=== PATIENT | female | born 1970 | race Caucasian/White ===

== ENCOUNTER 2025-06-02 18:30 | Emergency (ER) | payer OTHER, SELFPAY ==
--- NOTE | 2025-06-02 18:37 | ED_ITS ---
HPI - General Adult General Chief complaint: Extremity Problem,Nontraumatic Stated complaint: LT Arm Pain Time Seen by Provider: 06/02/25 18:42 Source: patient, RN notes reviewed and old records reviewed Mode of arrival: ambulatory Limitations: no limitations History of Present Illness HPI narrative: 55-year-old female presents to the [facility] with left shoulder pain. States that it started 4 days ago. States that she feels like she slept wrong. Denies any chest pain, shortness of breath. States the pain starts at the base of her neck and radiates down to her elbow. States that she can get comfortable her with certain positions. Does have full range of motion. Denies any injury. Reports a history of a pinched nerve in the same area. Onset (ago): day(s) (4) Related Data Home Medications ?Medication ?Instructions ?Recorded ?Confirmed ?Last Taken ?Type estradiol 0.01% (0.1 mg/gram) vaginal 06/02/25 Unknow n History vaginal cream losartan 100 mg tablet mg 06/02/25 Unknown History metoprolol succinate 25 mg mg PO 06/02/25 Unknown His tory tablet,extended release 24 hr topiramate 100 mg tablet mg 06/02/25 Unknown History Allergies Allergy/AdvReac Type Severity Reaction Status Date / Time hydrocodone AdvReac Intermediate Irritable Verified 06/02/25 18:47 Review of Systems Review of Systems: All systems reviewed & are unremarkable except as noted in HPI and below Constitutional: Constitutional: Reports no additional constitutional complaints ENT: Reports system reviewed and no additional complaints, except as documented Cardiovascular: Cardiovascular: Reports no additional cardiovascular complaints, Denies chest pain and Denies dyspnea Respiratory: Respiratory: Reports no additional respiratory complaints, Denies chest congestion, Denies cough and Denies dyspnea Musculoskeletal: Musculoskeletal: Reports as per HPI Integumentary/Breasts: Skin/Breast: Reports system reviewed and no additional complaints, except as docu PMFSH Comments At the time of my signature, I reviewed and agree with the nursing past medical, surgical, social, and family history. There is no relevant family history pertinent to the patient complaint. Exam Const: General: cooperative, healthy appearing, comfortable, no acute distress, well developed, alert and well nourished Nutritional Appearance: well nourished and obese Orientation/consciousness: patient oriented x3 Limitations: no limitations HENMT: Head: normal to inspection Eyes: General: appearance normal, both eyes and all related structures Alignment and Position: alignment normal Neck: Neck: normal visual inspection, full ROM, no lymphadenopathy and no meningeal signs Chest: Chest palpation & inspection: normal inspection of the chest Resp: Effort & Inspection: normal respiratory effort and able to speak in complete sentences Auscultation: clear to auscultation bilaterally, no crackles, no rales, no rhonchi and no wheezes Cardio: Rate: regular rate Skin: General skin exam: normal color and no rashes or lesions noted Neuro: General: patient oriented x3, gait normal, moves all extremities and no meningeal signs Cognition (Neuro): normal cognition Speech: normal speech Gait exam (Neuro): Normal gait present Extrem: General: normal to inspection, full ROM, capillary refill normal and normal gait Left upper extremity: full ROM, no joint enlargement, shoulder/upper arm inspection abnormal and normal ROM; no tenderness, no swelling, no abrasions, no lacerations, no ecchymosis, no penetrating wound and no deformity, elbow/forearm normal to inspection and normal ROM; no tenderness, wrist normal to inspection and normal ROM and hand normal to inspection, normal capillary refill and normal ROM of fingers Psych: Appearance: grossly normal and well kempt Mental Status: mental status grossly normal Speech and movement: Normal speech and movement present and Clear speech present Affect: normal affect Attitude: cooperative Course Course Level of Care: Express Care Visit Vital Signs Vital signs: Vital Signs Temperature 97.1 F L 06/02/25 18:39 Pulse Rate 90 06/02/25 18:39 Respiratory Rate 18 06/02/25 18:39 Blood Pressure 144/86 H 06/02/25 18:39 Pulse Oximetry 99 06/02/25 18:39 Oxygen Delivery Room Air 06/02/25 18:39 Temperature 97.1 F L 06/02/25 18:39 Pulse Rate 90 06/02/25 18:39 Respiratory Rate 18 06/02/25 18:39 Blood Pressure 144/86 H 06/02/25 18:39 Pulse Oximetry 99 06/02/25 18:39 Oxygen Delivery Room Air 06/02/25 18:39 Reviewed Medical Decision Making MDM Narrative Medical decision making narrative: Patient sitting comfortably in exam room. Patient is nontoxic, vitals stable. Patient presents with left shoulder discomfort radiating to her elbow. Has full range of motion. No erythema, ecchymosis or rashes noted. Unable to reproduce pain with palpation Patient is appropriate for outpatient treatment with close follow-up most likely muscular Discharge instructions reviewed with patient, as well as provided in writing per nursing staff. The instructions also include specific and strict return/GO TO THE ER as well as f/u information. All questions have been answered, and the patient deny any further questions with discharge and discharge plan. Some parts of this dictation were generated by voice recognition software and may contain typographical and/or grammatical inaccuracies. Differential Diagnosis Differential Diagnosis: Muscle strain, sprain, radiculopathy Medical Records Medical records reviewed: Yes I reviewed the external patient's medical records. Vital Signs Vital Signs: Vital Signs Temperature 97.1 F L 06/02/25 18:39 Pulse Rate 90 06/02/25 18:39 Respiratory Rate 18 06/02/25 18:39 Blood Pressure 144/86 H 06/02/25 18:39 Pulse Oximetry 99 06/02/25 18:39 Oxygen Delivery Room Air 06/02/25 18:39 Temperature 97.1 F L 06/02/25 18:39 Pulse Rate 90 06/02/25 18:39 Respiratory Rate 18 06/02/25 18:39 Blood Pressure 144/86 H 06/02/25 18:39 Pulse Oximetry 99 06/02/25 18:39 Oxygen Delivery Room Air 06/02/25 18:39 Reviewed Lab Data Lab results reviewed: Yes I reviewed the patient's lab results. Labs: Reviewed Critical Care Time Critical Care Time Critical Care Time: No Discharge Plan Discharge Clinical Impression: Cervical radiculopathy Patient Disposition: Home Condition: Stable Instructions: Antibiotic Form, Cervical Radiculopathy (ED) Additional Instructions: Take ibuprofen as directed to decrease inflammation and to help pain. Take Baclofen (muscle relaxer) as directed. Do not drink, drive, operate machinery, or do anything dangerous while taking this medication Exercise:Combine aerobic exercise, like walking or swimming, with specific exercises to keep the muscles in your back and abdomen strong and flexible. Proper Lifting:Be sure to lift heavy items with your legs, not your back. Do not bend over to pick something up. Keep your back straight and bend at your knees. Weight:Maintain a healthy weight. Being overweight puts added stress on your lower back. Avoid Smoking:Both the smoke and the nicotine cause your spine to age faster than normal. Proper Posture:Good posture is important for avoiding future problems. A thera pist can teach you how to safely stand, sit, and lift. Use warm moist heat to help with pain. Using topical such as Biofreeze, Idris-Jackson or Aspercreme can also help Follow up with Primary provider in 2-3 days, This may become a chronic condition and they will be the one to help manage your pain and order additional testing. Go to the nearest ER if you develop problems with bladder/bowel function, weakness or loss of feeling in one or both of your legs. Patient Language: Nigerien Prescriptions: New lidocaine [Lidoderm] 5 % adhesive patch,medicated 1 patch topical DAILY Qty: 15 0RF Rx Instructions: leave on most painful area for up to 12 hrs baclofen 10 mg tablet 10 mg PO TID PRN (Reason: muscle pain) Qty: 15 0RF No Action metoprolol succinate 25 mg tablet extended release 24 hr PO estradiol 0.01 % (0.1 mg/gram) cream VAGINAL topiramate 100 mg tablet losartan 100 mg tablet Follow-up/Referrals: [facility],Albino Ordaz [Other] - 1 Week Stand Alone Forms: Work/School Release IP Time of Disposition: 18:53
--- OUTSIDE RECORDS SUMMARY | 2025-06-02 18:37 | XMS_ITS | Clinical Summary ---
Author Organization [facility] [id number] Cross Address [address] [place] [phone] Care Team Providers Care Malt Roaster Name Role Phone Marline Bull DO Unavailable [phone] Albino Arango DO Primary Care Provider Allergies Active Allergy Reactions Criticality Noted Date Comments Hydrocodone Anxiety,Hypotension,Itching High 006 Oxytocin Rash Medium 02/03/1993 Thiazides Muscle pain Medium 02/20/2024 Tramadol Anxiety,Itching Low 08/20/2008 Medications losartan (COZAAR) 100 mg tablet Take 1 tablet (100 mg total) by mouth nightly Active metoprolol tartrate (LOPRESSOR) 12.5 mg immediate release split tablet Take 2 half tablet (25 mg total) by mouth every morning Active vitamin b complex tablet Take 1 tablet by mouth every morning Active estradioL (ESTRACE) 0.01 % (0.1 mg/gram) vaginal cream Apply 1 gram nightly to vagina for 1 week, then Sunday// Sunday 42.5 g 11 5 Active ondansetron ODT (ZOFRAN-ODT) 4 mg disintegrating tablet Take 1 tablet (4 mg total) by mouth every 8 (eight) hours as needed for nausea or vomiting 3 tablet 5 Active docusate sodium (COLACE) 100 mg capsuleIndications: constipation Take 1 capsule (100 mg total) by mouth 2 (two) times a day 60 capsule 1 5 06/13/20 25 Active polyethylene glycol (MIRALAX) 17 gram/dose bulk powder Take 17 g by mouth daily as needed (constipatio n) 578 g 5 Active acetaminophen (TYLENOL) 325 mg tablet Take 2 tablets (650 mg total) by mouth every 6 (six) hours as needed for pain 30 tablet 5 Active ibuprofen (ADVIL,MOTRIN) 600 mg tabletIndications:P ain Take 1 tablet (600 mg total) by mouth every 6 (six) hours as needed for pain 30 tablet 1 5 Active Active Problems Problem Noted Date Diagnosed Date Uterine prolapse 05/22/2025 DELLA (stress urinary incontinence, female) 2024 Vaginal pain 12/05/2024 Bilateral leg cramps 11/19/2024 Cervical prolapse 11/19/2024 Prediabetes 11/20/2023 Hypertension, essential 11/20/2023 Bilateral foot pain 11/20/2023 Chronic midline low back pain without sciatica 0 09/20/2022 Gastroesophageal reflux disease without esophagi tis 09/28/2021 Assessment & Plan (09/28/2021 1:43 PM GEOTHERMAL TECHNICIAN): Diet controlled fo rnow Was controlled on omeprazole in the past Morbid obesity with BMI of 45.0-49.9, adult 04/2022 Assessment & Plan (09/28/2021 1:44 PM GEOTHERMAL TECHNICIAN): Advise diet and exercise Hyperlipidemia 01/03/2014 Overview (11/23/2016): HYPERLIPIDEMIA NEC/NOS Resolved Problems Problem Noted Date Diagnosed Date Resolved Date Vaginal pain 12/05/2024 02/19/2025 Muscle cramps at night 01/02/202407/10 Morbid obesity with BMI of 50.0-59.9, adult 11/20/2023 02/20/2024 Irregular menstrual cycle 12/12/2022 IFG (impaired fasting glucose) 09/20/2022 11/20/2023 Elevated BP without diagnosis of hypertension 09/20/19 23 11/20/2023 Encounters Date Type Department Care Team Description 05/22/2025 9:15 AM CDT Office Visit [facility] Obstetrics and Gynecology [address] [place] [address] Office [address] [place] [address] Alicia Karimi MD Uterine prolapse (Primary Dx); DELLA (stress urinary incontinence, female) 04/15/[address] [facility] Obstetrics and Gynecology [address] [facility] 7th Floor [address] [place] [phone] Maribel Matos RN Post-Op Call 04/14/2025 2:25 PM CDT Anesthesia Event [facility] Operating Room [address] [place] [phone] Amador Gross MD Scott, Nicole R., CRNA 04/14/2025 1:30 PM CDT - 04/14/2025 3:30 PM CDT Surgery [facility] Operating Room [address] [place] [phone] Alicia Karimi MD Removal of Mesh 04/14/2025 11:09 AM CDT - 04/14/2025 5:24 PM CDT Hospital Encounter [facility] Operating Room [address] [place] [phone] Alicia Karimi MD Vaginal pain; DELLA (stress urinary incontinence, female) Discharge Disposition: Discharge to home or self care 04/01/2025 2:15 PM CDT Pre-Admission Testing [facility] Pre Anesthesia Testing [address] [place] [phone] 03/10/2025 11:20 AM CDT Office Visit [facility] Obstetrics and Gynecology [address] [facility] [address] [place] [phone] Mixed stress and urge urinary incontinence (Primary Dx); Cystocele with prolapse; Uterine prolapse; Rectocele from Last 3 Months Immunizations Immunization Administration Dates Next Due Influenza, Split 06/20/2010 Influenza, Trivalent, Split, Preservative Free, Intradermal 06/18/2012 Influenza, Unspecified 05/16/2024,10/02/ 2023(Deferred: Patient Refused),06/20/2021(Deferred: Patient Refused) Tdap 11/18/2004 Surgical History Surgery Date Site/Laterality Comments OTHER SURGICAL HISTORY R achilles rupture: repair TONSILLECTOMY Tonsillectomy SPINE SURGERY 2006 ESSURE [address]AL LIGATION Bilateral [facility] Medical History Medical History Date Comments Anxiety disorder Anxiety GERD (gastroesophageal reflux disease) 1992 Mixed hyperlipidemia Hypertension Varicella 1975 Irregular menses 1989 Urinary incontinence 2005 Abnormal Pap smear of cervix 2002 Menopause ovarian failure Vaginal pain DELLA (stress urinary incontinence, female) Family History Medical History Relation Name Comments Arthritis Father Joaquin May Heart murmur Father Joaquin May Hypertension Father Joaquin May Kidney disease Father Joaquin May Stroke Father Joaquin May Diabetes Maternal Grandfather Jermaine Dalton Arthritis Mother Narcisa May Hypertension Mother Narcisa May Coronary artery disease Other 1 Fami ly history of Coronary artery disease; Diabetes type II Other 2 Family hist ory of Diabetes -Type 2; Hyperlipidemia Other 3 Family histor y of Hyperlipidemia; Hypertension Other 4 Family history of Hypertension; Rheum arthritis Other 5 Family histo ry of Rheumatoid arthritis; Arthritis Sister 1 Georgie May-[place] Hypertension Sister 1 Georgie May-[place] Arthritis Sister 2 Georgie Amy-[place] Hypertension Sister 2 Georgie December-[place] Breast cancer Neg Hx Colon cancer Neg Hx Ovarian cancer Neg Hx Relation Name Status Comments Father Joaquin May Alive Maternal Grandfather Jermaine Dalton Alive Mother Narcisa May Alive Other 1 Other 2 Other 3 Other 4 Other 5 Sister 1 Georgie Roland-[place] Sister 2 [facility] Al[facility] Social History Tobacco Use Types Packs/Day Years Used Date Smoking Tobacco: Former Cigarettes 0.5 5 0 08/20/1988 - 08/20/1992 Passive Smoke Exposure: Past Smokeless Tobacco: Never Alcohol Use Standard Drinks/Week Comments Not Currently 0 (1 standard drink = 0.6 oz pur e alcohol) PHQ-2 Answer Date Recorded PHQ-2 Total Score (If total score is 3 or more points, staff should administer the PHQ-9) 0 02/19/2025 AUDIT-C Answer Date Recorded Q1: How often do you have a drink containing alcohol? Never 04/01/2025 Q2: How many drinks containi ng alcohol do you have on a typical day when you are drinking? Patient does not drink Q3: How often do you have si x or more drinks on one occasion? Never 04/01/2025 Personal Safety Answer Date Recorded Have you ever been in or are you currently in a harmful physical or emotional relationship or is someone making you feel afraid or unsafe? Denies 04/14/2025 Comments No Sex and Gender Information Value Date Recorded Sex Assigned at Not on file Legal Sex Female 1:40 AM GEOTHERMAL TECHNICIAN Gender Identity Female 09/28/2021 9:55 AM GEOTHERMAL TECHNICIAN Sexual Orientation Straight 09/28/2021 9: 55 AM GEOTHERMAL TECHNICIAN Obstetrics History Para Term AB IAB SAB Ectopic Multiple Livin g Live Births 1 Date Outcome GA Total Labor Labor/2nd/3rd Weight Sex Type Anes PTL Sandie A1 A5 Name Clin Term M Vag-Spo nt Last Filed Vital Signs Vital Sign Reading Time Taken Comments Blood Pressure 147/87 05/22/2025 9:04 AM CDT Pulse 85 05/22/2025 9:04 AM CDT Temperature 36.1 C (97 F) 05/22/2025 9:04 AM CDT Respiratory Rate 16 05/22/2025 9:04 AM CDT Oxygen Saturation 100% 04/14/2025 4:55 PM CDT Inhaled Oxygen Concentration - - Weight 126.1 kg (278 lb) 05/22/2025 9:04 AM CDT Height 160 cm (5' 3) 05/22/2025 9:04 AM CDT Body Mass Index 49.25 05/22/2025 9:04 AM CDT Plan of Treatment Scheduled Procedures Name Priority Associated Diagnoses Date/Ti me HYSTERECTOMY VAGINAL Uterine prolapse SALPINGECTOMY Uterine prolapse REPAIR CYSTOCELE ANTERIOR COLPORRHAPHY Uterine prolapse REPAIR RECTOCELE Uterine prolapse REPAIR ENTEROCELE Uterine prolapse COLPOPEXY SACROSPINOUS Uterine prolapse COLPORRHAPHY Uterine prolapse INJECTION BULKAMID Uterine prolapse CYSTOSCOPY Uterine prolapse Health Maintenance Due Date Last Done Comments Hepatitis C Screening 1970 Hepatitis B Screening 1989 Influenza Vaccine (#1) 2025 , 06/18/2012, 06/20/2010 Cervical Cancer Screening 11/10/20252024, 10/31/2023, 12/12/2022 Regular Well Visit/Exam 18-64 11/19/2025 11/19/2024, 11/10/2024, 10/31/2023, Additional history exists Breast Cancer Screening-Mammogram 01/22/2026 01/22/2025, 01/02/2024, 12/18/2022, Additional history exists Depression Screening 02/19/2026 02/19/2025, 02/20/2024, 11/20/2023, Additional history exists Colon Cancer Screening-DNA Stool 12/30/2027 12/29/2024, 11/07/2021, 11/07/2021 DTaP/Tdap/Td Vaccine Discontinued 11/18/2004 Pneumococcal vaccine <65 Aged Out No longer eligible based on patient's age to complete this topic Zoster Vaccine Discontinued Procedures Procedure Name Priority Date/Time Associated Diagnosis Comments SURGICAL PATHOLOGY Routine 04/14/2025 3: 07 PM CDT Vaginal pain DELLA (stress urinary incontinence, female) MD AN PROCEDURE PLACEHOLDER Routine 04/14/2025 2:39 PM CDT MD AN ELECTIVE ENDOTRACHEAL AIRWAY Routine 04/14/2025 2:39 PM CDT CYSTOSCOPY 04/14/2025 2:25 PM CDT Vaginal pain DELLA (stress urinary incontinence, female) REPAIR OF PARAVAGINAL DEFECT BY VAGINAL APPROACH 04/14/2025 2:25 PM CDT Vaginal pain DELLA (stress urinary incontinence, female) REMOVAL OF MESH 04/14/2025 2:25 PM CDT Vaginal pain DELLA (stress urinary incontinence, female) POCT HCG, URINE Routine 04/14/2025 11:45 AM CDT URODYNAMICS 03/10/2025 11:53 AM CDT POCT URINALYSIS DIPSTICK Routine 03/10/2025 11:49 AM CDT Mixed stress and urge urinary incontinence Cystocele with prolapse Uterine prolapse Rectocele SCREENING MAMMOGRAM BILATERAL W SAM Schedule Routine, Read Routine (OP Routine) 01/22/2025 3:43 PM CDT Screening mammogram, encounter for STOOL DNA COLOGUARD Routine 12/29/2024 7:39 AM CDT Colon cancer screening THINPREP IMAGING PAP AND HPV MRNA E6/E7 REFLEX HPV 16,18/45 Routine 11/10/2024 2:09 PM CDT Routine gynecological examination from Last 3 Months or Most Recently Relevant to Health Maintenance Results * Surgical pathology (04/14/2025 3:07 PM CDT) Other (Other) 04/14/2025 3:0 7 PM CDT Comment:Formalin added post procedure Narrative PATHOLOGY [facility] - 04/15/2025 11:20 AM CDT [address] [address] Tele: Anne Isaac MD - Appliance Service Representative Note to Patients: This report may contain a detailed description of human tissue sent by a health care provider to the laboratory for pathologic evaluation. The content of this report is essential for diagnosis and may provide important critical findings. This information may be unfamiliar to patients to review without a medical professional present. It is advised that the patient review this report in the presence of a health care provider who can answer questions and explain the details. SURGICAL PATHOLOGY REPORT Patient Name: ALESSANDRA ROLAND Address: [address] [place] [address] Gender: F : 1970 (Age: 55) Service: Surgery Location: [facility] [place], Hospital #: [id number] Patient Type: [facility] [place] SAME DAY SURGERY Taken: 04/14/2025 Received 04/14/2025 Reported: 04/15/2025 Physician(s): MD Albino Grigsby, DIAGNOSIS: Mid urethral sling, removal: - Synthetic mesh material consistent with mid urethral sling - Adherent benign fibroadipose tissue and skeletal muscle [facility]/04/15/2025 11:20 Examining Pathologist: Deo Griffith M.D. Report Reviewed and Electronically Signed By Deo Griffith M.D. SPECIMEN TYPE: A: MIDURETHERAL SLING CLINICAL IMPRESSION AND HISTORY: Vaginal pain. DELLA. GROSS DESCRIPTION: Received in formalin labeled with ALESSANDRA MAY and mid urethral sling are two pink-mcallister irregular fragments of synthetic material partially covered with soft membranous tissue measuring 2.2 x 1.5 x 0.2 cm in aggregate. The synthetic material is gross examination only. Languages And Literature Instructor sections are submitted in cassette labeled A1. ,[facility] MICROSCOPIC DESCRIPTION: Microscopic examination supports the above captioned diagnosis. Clerical Data Follows A; 19235 REPORT IMAGES AND/OR SCANNED DOCUMENTS ONLY VIEWABLE IN PDF FORMAT The immunohistochemical test(s) cited in this report, if any, was developed and its performance characteristics determined by [facility] Pathology Department. It has not been cleared or approved by the U.S. Food and Drug Administration. The FDA has determined that such clearance or approval is not necessary. This test is used for clinical purposes. It should not be regarded as investigational or for research. [facility] Laboratory is certified under the Clinical Laboratory Improvement Amendments of 1988 (CLIA) as qualified to perform high complexity testing. Immunostains were performed on formalin-fixed paraffin embedded tissue using a polymer diaminobenzidine chromogen detection system. Antibodies used may include clone SP1 (rabbit monoclonal, estrogen receptor), clone 1E2 (rabbit monoclonal progesterone receptor), Ki-67 (rabbit monoclonal, 30-9), CD117 (rabbit polyclonal, c-kit), and anti-Her-2/rosalinda (4B5) (rabbit monoclonal primary antibody). In the event that immunohistochemistry or special stains have been performed, attending physician has confirmed appropriateness of controls. Frozen section, operating room consultation, gross examination and dissection, and case sign out may have been performed in part or completely in the following laboratories: [facility], [address] [place] [address], [address] [place] [id number]. us Alicia Karimi MD LAB PATHOLOGY ORDERABLES Final Result PATHOLOGY [facility] Laboratory Receiving [address] [place] [address] * MD AN ELECTIVE ENDOTRACHEAL AIRWAY, MD AN PROCEDURE PLACEHOLDER (04/14/2025 2:39 PM CDT) Angeles Bui CRNA - 04/14/2025 2:39 PM CDT Angeles Hawkins CRNA 04/14/2025 2:40 PM Airway Patient location: OR Urgency: elective Date/time: 04/14/2025 2:34 PM Indications for airway management: anesthesia Difficult airway: no Staff: Placed by: REGRINDER: Angeles Hawkins CRNA Airway prep: Preoxygenated: yes Patient position: sniffing Mask difficulty assessment: 2 - vent by mask + OA or adjuvant Sedation level during airway: GA Final airway details: Final airway type: endotracheal airway Tube type: ETT ETT size: 7.0 mm Cuffed: yes Technique used for successful ETT placement: video laryngoscopy Devices/Methods used in placement: stylet Insertion site: oral Video blade type: Osorio Blade size: 3 Cormack-Lehane (video): grade I - full view of glottis Cuff volume: 7 mL Cuff inflated with: air ETT to lips: 19 cm Placement verified by: auscultation and CO2 detection Airway secured with: silk tape Number of attempts: 1 Amador Gross MD ANESTHESIA ORDERABLES Final Res ult * POCT hCG, urine (04/14/2025 11:45 AM CDT) HCG, ur, POC Negative Negative Lot Number [id number] QC Backgroud Clear Acceptable QC Control Line Acceptable Urine 04/14/2025 11:4 5 AM CDT Sulma Ocasio NP POINT OF CARE TEST JUANITO GRESHAM Final Result * Urodynamics (03/10/2025 11:53 AM CDT) Alicia Karimi MD PROCEDURE ORDERABLES F inal Result * POCT urinalysis dipstick (03/10/2025 11:49 AM CDT) Color, Urine, POC Yellow Clarity, ur, POC Clear Clear Glucose, ur, POC Negative Negative Bilirubin, ur, POC Negative Negative Ketones, ur, POC Negative Negative Specific [place], POC 1.015 1.003 - 1.030 Blood, ur, POC Negative Negative pH, ur, POC 6.0 5.0 - 8.0 Protein, ur, POC Negative Negative Urobilinogen, urine, POC 0.2 0.2 - 1.0 mg/dL Nitrite, ur, POC Negative Negative Leukocytes, ur, POC Negative Negative Lot Number [id number] Urine 03/10/2025 11:4 9 AM CDT Alicia Karimi MD POINT OF CARE TEST ORDERA BLES Final Result * Screening Mammogram Bilateral W Sam (01/22/2025 3:43 PM CDT) Anatomical Region Laterality Modality Breast Bilateral Mammography Impressions 01/22/2025 4:01 PM CDT Bilateral No evidence of malignancy in either breast. OVERALL BI-RADS FINAL ASSESSMENT: 2 - Benign RECOMMENDATION: Recommend bilateral annual screening mammography. Narrative 01/22/2025 4:01 PM CDT EXAMINATION: Screening Mammogram Bilateral W Sam: 01/22/2025 COMPARISON: Relevant prior studies available at the time of interpretation were reviewed. TECHNIQUE: Mammography was performed with 2D and digital breast tomosynthesis (DBT) images. CAD was utilized. BREAST PARENCHYMAL COMPOSITION: The breasts are almost entirely fatty. FINDINGS: Bilateral There is no suspicious mass, calcification, or architectural distortion in either breast. Self Screening Mammogram IMG MAMMO PROCEDURES Fi nal Result * Stool DNA - Cologuard (12/29/2024 7:39 AM CDT) Stool DNA - Cologuard Negative Negative [employer] (CLIA #:[id number]) Comment: The Cologuard (TM) test was performed on this specimen. NEGATIVE TEST RESULT. A negative Cologuard result indicates a low likelihood that a colorectal cancer (CRC) or advanced adenoma (adenomatous polyps with more advanced pre-malignant features) is present. The chance that a person with a negative Cologuard test has a colorectal cancer is less than 1 in 1500 (negative predictive value >99.9%) or has an advanced adenoma is less than 5.3% (negative predictive value 94.7%). These data are based on a prospective cross-sectional study of 10,000 individuals at average risk for colorectal cancer who were screened with both Cologuard and colonoscopy. (Brody Cates al, N Engl J Med 2014;370(14):1286- 1297) The normal value (reference range) for this assay is negative. COLOGUARD RE-SCREENING RECOMMENDATION: Periodic colorectal cancer screening is an important part of preventive healthcare for asymptomatic individuals at average risk for colorectal cancer. Following a negative Cologuard result, the [place] [employer] and U.S. Multi-Society Task Force screening guidelines recommend a Cologuard re-screening interval of 3 years. References: [place] [employer] Guideline for Colorectal Cancer Screening: https://www.cancer.org/cancer/hvhjb-goupxc-twbzbt/qtqhwwgwe-rhfqiplgj-virkzhe/ac s-rec ommendations.html.; Colton DK, Nik CR, Adiel GoldsmithK, Colorectal Cancer Screening: Recommendations for Physicians and Patients from the U.S. Multi-Society Task Force on Colorectal Cancer Screening , Am J Gastroenterology 2017; 112:2016-1792. TEST DESCRIPTION: Composite algorithmic analysis of stool DNA-biomarkers with hemoglobin immunoassay. Quantitative values of individual biomarkers are not reportable and are not associated with individual biomarker result reference ranges. Cologuard is intended for colorectal cancer screening of adults of either sex, 45 years or older, who are at average-risk for colorectal cancer (CRC). Cologuard has been approved for use by the U.S. FDA. The performance of Cologuard was established in a cross sectional study of average-risk adults aged 50-84. Cologuard performance in patients ages 45 to 49 years was estimated by sub-group analysis of near-age groups. Colonoscopies performed for a positive result may find as the most clinically significant lesion: colorectal cancer [4.0%], advanced adenoma (including sessile serrated polyps greater than or equal to 1cm diameter) [20%] or non- advanced adenoma [31%]; or no colorectal neoplasia [45%]. These estimates are derived from a prospective cross-sectional screening study of 10,000 individuals at average risk for colorectal cancer who were screened with both Cologuard and colonoscopy. (Brody Delgado, N Engl J Med 2014;370(14):9117-5267.) Cologuard may produce a false negative or false positive result (no colorectal cancer or precancerous polyp present at colonoscopy follow up). A negative Cologuard test result does not guarantee the absence of CRC or advanced adenoma (pre-cancer). The current Cologuard screening interval is every 3 years. ([place] [employer] and U.S. Multi-Society Task Force). Cologuard performance data in a 10,000 patient pivotal study using colonoscopy as the reference method can be accessed at the following location: www.[employer]/results. Additional description of the Cologuard test process, warnings and precautions can be found at www.cologuard.com. Stool 12/29/2024 7:39 AM CDT 12/30/2024 9:33 AM CDT Albino Arango DO LAB BODY FLUIDS AND STO OLS ORDERABLES Final Result [employer] (CLIA #:[id number]) [address] [place] [address] * ThinPrep(R) Imaging Pap and HPV mRNA E6/E7 Reflex HPV 16,18/45 (11/10/2024 2:09 PM CDT) CLINICAL INFORMATION: [facility] Comment:None given LMP [facility] Comment:NONE GIVEN Previous Pap [facility] Comment:NONE GIVEN Prev. Bx [facility] Comment:NONE GIVEN SOURCE: [facility] Comment:None given Pap, specimen adequacy [facility] Comment: Satisfactory for evaluation. Endocervical/transformation zone component present. Age and/or menstrual status not provided HPV interp [facility] Comment: Cytology Results: Negative for intraepithelial lesion or malignancy. COMMENTS [facility] Comment: This Pap test has been evaluated with computer assisted technology. Quality Control Head [facility] Comment: ABC, CT(ASCP) CT screening location: [place] [address] [address] [place] [address] Comment [facility] Comment: EXPLANATORY NOTE: The Pap is a screening test for cervical cancer. It is not a diagnostic test and is subject to false negative and false positive results. It is most reliable when a satisfactory sample, regularly obtained, is submitted with relevant clinical findings and history, and when the Pap result is evaluated along with historic and current clinical information. Human papillomavirus RNA, High Risk E6/E7 Not Detected Not Detected [facility] Comment: Methodology: [employer]-Mediated Amplification This assay detects E6/E7 viral messenger RNA (mRNA) from 14 high-risk HPV types (16,18,31,33,35,39,45,51,52,56,58,59,66,68). Cervical sources are required for HPV testing. If a vaginal source from a patient who has had a total hysterectomy with removal of cervix was submitted, please contact the testing laboratory for alternative testing options. For additional information, please refer to http://education.[employer]/faq/EWV981d4 (This link if provided for information/ educational purposes only.) Swab 11/10/2024 2:09 PM CDT 11/11/2024 12:14 AM CDT Marline Bull DO LAB CYTOLOGY ORDERABLES Final Result [facility] [address] [place] [address] [facility] [address] [place] [address] from Last 3 Months or Most Recently Relevant to Health Maintenance Insurance [employer] OPEN ACCESS [facility] CHOICE PLUS [facility] CHOICE PLUS [facility] CHOICE PLUS Care Teams Malt Roaster Relationship Specialty Start Date End Date Albino Arango DO [address] [place] [address] PCP - General Family Medicine 11/20/23 [place] [address] [place] [address] Consulting Physician Obstetrics and Gynecology 07/05/23
--- OUTSIDE RECORDS SUMMARY | 2025-06-02 18:37 | XMS_ITS | Clinical Summary ---
Author Organization [facility] Address [address] [place] [address] Care Team Providers Care Ream Cutter Name Role Phone Linda Umaña RN Primary Care Provider Unavailab le Source Comments [facility],non-owned Affiliates and Associated Physician Practices is amultiple site organization consisting of ambulatory clinics and hospital sitesin [place], [place], [place] and [place]. This disclosure is being madepursuant to the Care Everywhere program and may not contain all information available regarding this patient. Last updated 18.[facility] Social History Tobacco Use Types Packs/Day Years Used Date Smoking Tobacco: Never Assessed Comments Unknown Sex and Gender Information Value Date Recorded Sex Assigned at Not on file Legal Sex Female 10:47 AM CDT Gender Identity Not on file Sexual Orientation Not on file Plan of Treatment Health Maintenance Due Date Last Done Comments COLOGUARD (AGES 45-75) - COL ON CA SCREENING 1971 COLON MONITORING 1971 COLONOSCOPY - COLON CA SCREENING 1971 CT COLONOGRAPHY - COLON CA SCREENING 1971 Colorectal Cancer Screening 1971 FIT - COLON CA SCREENING 1971 FLEX SIG - COLON CA SCREENING 1971 LIPID TESTING 1971 MAMMOGRAM 1971 HIV SCREENING 1986 HEPATITIS C SCREENING 01/26/1989 DTAP/TDAP/TD VACCINES (1 - Tdap) 1990 HEPATITIS B VACCINE (1 of 3 - 19+ 3-dose series) 1990 PNEUMOCOCCAL VACCINE 50+ (1 of 1 - PCV) 2021 ZOSTER VACCINE (1 of 2) 2021 DEPRESSION SCREENING 08/20/2024 COVID-19 VACCINE (1 - 2023-2 5 season) 2025 INFLUENZA VACCINE (#1) 2025 HIB VACCINE Aged Out No longer eligi ble based on patient's age to complete this topic HPV VACCINE Aged Out No longer eligi ble based on patient's age to complete this topic MENINGOCOCCAL (Group B) VACC INE SHARED DECISION-MAKING Aged Out No longer eligibl e based on patient's age to complete this topic MENINGOCOCCAL GROUPS A/C/Y/W VACCINE Aged Out No longer eligible b ased on patient's age to complete this topic Insurance Care Teams Ream Cutter Relationship Specialty Start Date End Date Linda Umaña RN PCP - General 03/26/15
[2025-06-02 18:39] VITALS: BP 144/86; PULSE 90; RESP 18; TEMP 36.2; O2SAT 99
== END 2025-06-02 18:50 | disposition home or self-care (01) ==
PROVIDERS: Emergency Provider Nurse Practitioner
DX: M54.12 Radiculopathy, cervical region (principal); I10 Essential (primary) hypertension; Z86.16 Personal history of COVID-19
CPT/HCPCS: 99203; G0463

== ENCOUNTER 2025-08-12 10:38 | Outpatient (CLI) | payer OTHER, SELFPAY ==
--- NOTE | ~2025-08-12 | MR_ITS ---
EXAMINATION: MR cervical spine wo con DATE: 08/12/2025 11:32 INDICATION: Cervical spondylosis with left-sided neck, shoulder and arm pain. TECHNIQUE: Magnetic resonance imaging (MRI) of the cervical spine was performed without intravenous contrast. Sequences included sagittal T2-weighted FSE, sagittal T2-weighted FS FSE, sagittal T1-weighted FSE, axial MERGE and axial T2- weighted FSE. COMPARISON: None FINDINGS: There is straightening of the normal cervical lordosis. Vertebral body heights are normal. Bone marrow signal intensity is normal. Mild disc height loss at C4-C5, C5-C6 and C6-C7. Cord signal intensity is normal. Cervical soft tissues are unremarkable. The following disc levels are specifically discussed: C2-C3: The disc does not extend beyond the endplate margin. There is no uncovertebral joint osteoarthritis. There is mild bilateral facet joint osteoarthritis. There is no neural foraminal stenosis. There is no central canal stenosis. C3-C4: The disc does not extend beyond the endplate margin. There is mild bilateral uncovertebral joint osteoarthritis. There is mild bilateral facet joint osteoarthritis. There is mild right neural foraminal stenosis. There is no central canal stenosis. C4-C5: Disc is mildly bulging, eccentric to the left where it mildly flattens the left ventral surface of the cord. There is mild bilateral uncovertebral joint osteoarthritis. There is mild left and minimal right facet joint osteoarthritis. There is mild left neural foraminal stenosis. There is mild ce ntral canal stenosis. C5-C6: Annular fissure and left paracentral disc protrusion which indents the left ventral surface of the cord There is mild to moderate bilateral uncovertebral joint osteoarthritis. There is mild bilateral facet joint osteoarthritis. There is mild right and mild to moderate left neural foraminal stenosis. There is mild central canal stenosis. C6-C7: Annular fissure and right paracentral disc protrusion with indention of the right ventral surface of the cord. There is moderate bilateral uncovertebral joint osteoarthritis. There is mild bilateral facet joint osteoarthritis. There is moderate bilateral neural foraminal stenosis. There is mild central canal stenosis. C7-T1: The disc does not extend beyond the endplate margin. There is mild bilateral uncovertebral joint osteoarthritis. There is mild bilateral facet joint osteoarthritis. There is no neural foraminal stenosis. There is no central canal stenosis. IMPRESSION: 1. Mild cervical spondylosis. Reviewed, dictated and finalized at location A. O [employer] [facility]
== END 2025-08-12 10:39 | disposition home or self-care (01) ==
LOC: MICIMG 10:40
DX: M47.812 Spondylosis without myelopathy or radiculopathy, cervical region (principal)
CPT/HCPCS: 72141